=== PATIENT | female | born 1965 | race Caucasian/White ===

== ENCOUNTER 2023-11-09 09:43 | Emergency (ER) | payer BC, SELFPAY ==
[2023-11-09 09:43] VITALS: BMI 31.6
[2023-11-09 10:10] VITALS: BP 138/81
--- NOTE | 2023-11-09 11:36 | ED.GENMED ---
History of Present Illness
General
Chief Complaint: Back Pain
Source: patient
Exam Limitations: none
Time Seen by Provider: 11/09/23 11:01
Nursing documentation reviewed up to this point in time: agreed with
History of Present Illness
History of Present Illness:
pt darien 57 y/o F healthy no PMH
was playing [employer] ball this morning 9 am and when she went to hit a ball, got close to the net and brushed her face up against the net and twisted somehow with her trunk going one way and her legs another and felt pulling in her right mid thoracic
spine
she says it was sore following the incident but then while she was trying to get into the car she felt a spasm of pain that was severe; she felt like she couldn't get comfortable no matter what position she was in. it never was pleuritic pain or
associated witH SOB
no fever, chills, numbness, weakness in the arms or legs, chest pain
she went home and took 800 mg motrin and has been icing and now while waiting feels mostly resolved
she can still feel it if she moves a certain way
it does wrap around to her right breast area too when she moves
no rash, no weakness
Past History
Past History
ED Past Medical History: None; Negative HTN, Hypercholesterolemia, IDDM or NIDDM
ED Past Surgical History: None
Social History
Tobacco: Non-smoker
Alcohol: Occasional
Drug: None
Personal:
Living: with family
Family History
Family History: CAD and Other (both parents of lung cancer); Negative Early CAD or Sudden
Review of Systems
Review of Systems
Allergies reviewed?: Yes
All Other Systems: Not applicable
Phy Exam
Physical Exam
Physical Exam:
GENERAL: Alert , in no apparent distress, comfortable at rest, looks very comfortable
HEAD: NCAT
NECK: no midline tenderness, active ROM intact, no paraspinal muscle tenderness;
CARDIAC: Regular rate and rhythm, no edema
LUNGS: Clear breath sounds bilaterally, no acute respiratory distress, no wheezes/rales/rhonchi
ABDOMEN: Soft, without focal tenderness, no r/g, no cvat, normal bowel sounds, nondistended
NEUROLOGICAL: Alert and oriented, no focal neuro deficits, CN intact, 5/5 strength, sensation intact, ambulation slight limp left leg
SKIN: Warm and dry, no redness, no rash
MUSCULOSKELETAL: arms/legs normal
back: no midline tendenress
pt has some tenderness to lateral thoracic region in the area of 7th/8th rib next to scapula that is slightly tender
no anterior rib tenderness;
full rom
no pleuritic pain
PSYCH: Normal and appropriate interaction.
Course
Orders/Labs/Results
Orders:
Orders
11/09/23 11:27
CR Ribs-right 3 Vw W/pa Chest* Urgent
Comment:
Reason For Exam: right sided posterior rib pain while falling
Thoracic Spine 2 Views [CR Thoracic Spine 2 Views] Urgent
Comment:
Reason For Exam: near fall and right sided back pain
Vital Signs
Initial and Last Documented VS:
Initial Vital Signs
Temp Pulse Resp BP Pulse Ox
98.3 F 74 16 138/81 99
11/09/23 10:10 11/09/23 10:10 11/09/23 10:10 11/09/23 10:10 11/09/23 10:10
Last Documented Vital Signs
Temp Pulse Resp BP Pulse Ox
98.3 F 68 18 135/70 99
11/09/23 10:10 11/09/23 12:38 11/09/23 12:38 11/09/23 12:38 11/09/23 12:38
MDM/Problems Addressed
Differential Diagnosis Includes:
pinched nerve, muscle strain and spasm, thoracic compression fx, rib fx
MDM/Problems Addressed:
57 y/o F with right sided thoracic back pain when she stretched to hit a pickleball and then fell
she felt that she was positioned awkwardly when she was twisting to get the ball
no direct trauma to back
pain got severe as a spasm while she was getting into the car and now is much better after ibuprofen
she can take deep breaths, has no numbness/tingling/weakness in arms or legs
no pleurtic pain
but feels some pulling in the right mid thoracic region with movement
has some mild right paraspinal thoracic muscle tendenress
normal lungs
well apeparing
sitting comfortably
normal UE/LE strength and snesantion
xrays indep reviewed by me
mod DJD of thoracic spine
no fx
motrin, tylenol, prn flexeril
stretches
heat
return precautions
*Critical Care Note
Total Time (30-74mins, 75-104mins- exclusive of procedures): Not Applicable
ED Attending Note
-
Portions of this chart may have been created with voice recognition software.� Occasional wrong word or��sound alike� substitutions may have occurred due to the inherent limitations of voice recognition software.
Discharge Plan
Departure
Patient Disposition: Home (Routine Discharge)
Date of Disposition: 11/09/23
Time of Disposition: 12:35
Patient with high blood pressure during this ER visit?: No
Condition: Fair
Discharge Problem:
Strain of thoracic region, Muscle spasm
Instructions: Upper Back Pain (DC)
Prescriptions:
New
cyclobenzaprine 10 mg tablet
10 mg PO HS PRN (Reason: muscle spasm) Qty: 10 0RF
ibuprofen 600 mg tablet
600 mg PO Q8H PRN (Reason: Pain) Qty: 20 0RF
No Action
ibuprofen 200 mg Tablet
800 mg PO Q6HPRN PRN (Reason: pain)
Referrals:
Menichello,Hiral, DO [Family Provider] -
Activity Restrictions/Additional Instructions:
YOUR PAIN IS LIKELY FROM A PULLED MUSCLE, YOU COULD ALSO HAVE A PINCHED NERVE
YOU DO HAVE DEGENERATIVE CHANGES IN YOUR THORACIC SPINE
TRY CONSERVATIVE MEASURES
HEAT OR ICE, WHATEVER FEELS BETTER
MOTRIN 600 MG EVERY 8 HOURS WITH FOOD FOR 3-5 DAYS
TYLENOL 500 MG 2 TABS 3 TIMES A DAY
AND NEEDED FLEXERIL 10 MG AT NIGHT (THIS IS A MUSCLE RELAXER AND CAN MAKE YOU TIRED) NEEDED FOR 1-3 NIGHTS TO HELP WITH SPASM
FOLLOW UP WITH YOUR DOCTOR NEEDED
RETURN FOR; SEVERE PAIN, SHORTNESS OF BREATH, WEAKNESS OR NUMBNESS IN ARMS OR LEGS OR ANY CONCERNS.
Interventions
Interventions:
*Risk Screen - Suicide Last Done: 11/09/23 11:00
*General Assessment Last Done: 11/09/23 11:00
*Neglect/Abuse Screening Last Done: 11/09/23 11:00
ED- Fall Risk Assessment Last Done: 11/09/23 11:00
*ED COVID-19 Vaccine History Last Done: 11/09/23 11:00
*Nursing Disposition Last Done: 11/09/23 12:38
ED-Musculoskeletal Assessment Last Done: 11/09/23 11:00
Discharge Date and Time
Discharge Date/Time: 11/09/23 12:46
Print Language: FRENCH
[2023-11-09 12:00] VITALS: BP 125/74
[2023-11-09 12:38] VITALS: BP 135/70
== END 2023-11-09 12:46 | disposition home or self-care (01) ==
LOC: EMR 09:43
PROVIDERS: EMERGENCY PHYSICIAN Emergency Medicine; FAMILY PHYSICIAN Family Medicine
DX: S29.012A Strain of muscle and tendon of back wall of thorax, initial encounter (principal); M62.830 Muscle spasm of back; X50.1XXA Overexertion from prolonged static or awkward postures, initial encounter
CPT/HCPCS: 99283; 71101; 72070